=== PATIENT | male | born 2000 | race Two or more races ===

== ENCOUNTER 2023-04-05 12:58 | Emergency (ER) | payer OTHER ==
[~2023-04-05] VITALS: Ht 170.2 cm; Wt 56.8 kg
[2023-04-05 13:14] VITALS: BP 131/82; PULSE 81; RESP 20; TEMP 97.4; O2SAT 97
== END 2023-04-05 15:58 | disposition home or self-care (01) ==
LOC: ER 12:58
DX: S60.011A Contusion of right thumb without damage to nail, initial encounter (principal); X58.XXXA Exposure to other specified factors, initial encounter; Y93.89 Activity, other specified; Y92.89 Other specified places as the place of occurrence of the external cause; Y99.8 Other external cause status
CPT/HCPCS: 11740; 73130; 99284

== ENCOUNTER 2024-09-07 14:55 | Emergency (ER) | payer OTHER ==
[~2024-09-07] VITALS: Ht 175.3 cm; Wt 63.6 kg
[2024-09-07 15:04] VITALS: BP 104/68; PULSE 96; TEMP 98.6; O2SAT 98
[2024-09-07 17:30] VITALS: RESP 18
== END 2024-09-07 17:31 | disposition home or self-care (01) ==
LOC: ER 14:55
DX: J06.9 Acute upper respiratory infection, unspecified (principal); Z20.822 Contact with and (suspected) exposure to COVID-19; R05.9 Cough, unspecified
CPT/HCPCS: 36415; 87811; 99283